=== PATIENT | male | born 1995 | race African-American/Black ===

== ENCOUNTER 2017-06-25 20:54 | Emergency (ER) | payer MEDICAID, OTHER ==
--- NOTE | 2017-07-18 15:15 | EKG ---
Test Reason : Blood Pressure : / mmHG Vent. Rate : 056 BPM Atrial Rate : 056 BPM P-R Int : 122 ms QRS Dur : 086 ms QT Int : 406 ms P-R-T Axes : 020 067 045 degrees QTc Int : 391 ms Sinus bradycardia No STEMI Otherwise normal ECG Confirmed by EMILE PALOMO ([id number]), international editorial producer KAYDEN JUNE ([id number] on 07/18/2017 3:15:31 PM Referred By: Confirmed By:EMILE PALOMO
== END 2017-06-25 22:14 | disposition left against medical advice (07) ==
LOC: ERS 20:54
DX: Z53.21 Procedure and treatment not carried out due to patient leaving prior to being seen by health care provider (principal)
CPT/HCPCS: 93005

== ENCOUNTER 2017-07-05 15:06 | Emergency (ER) | payer MEDICAID ==
--- NOTE | 2017-07-05 15:32 | RAD ---
PA VIEW OF THE CHEST: History: Chest pain. FINDINGS: Lungs are clear. Heart and mediastinum appear normal. Vascular markings are normal. IMPRESSION: Unremarkable one view chest. POS: [facility]
== END 2017-07-05 18:50 | disposition left against medical advice (07) ==
LOC: ERS 15:06
DX: Z53.21 Procedure and treatment not carried out due to patient leaving prior to being seen by health care provider (principal)
CPT/HCPCS: 71045; 93005

== ENCOUNTER 2017-08-10 13:00 | Emergency (ER) | payer MEDICAID, OTHER ==
[2017-08-10 13:47] LABS: Hemoglobin 15.7 g/dL (14.0-18.0); Mean Corpuscular HGB CONC 35.4 g/dL (32.0-36.0); Mean Corpuscular Hemoglobin 32.9 pg (25.0-35.0); Mean Corpuscular Volume 92.8 fl (77.0-87.0); RBC Distribution Width 11.9 % (11.5-14.5); Red Blood Cell (RBC) Count 4.79 mill/uL (4.00-5.20)
[2017-08-10 13:57] LABS: Bilirubin Negative (Negative); Blood, Urine Negative (Negative); Clarity CLEAR (Clear); Glucose, Urine (Dipstick) Negative (Negative); Leukocyte Negative (Negative); Nitrite Negative (Negative); Protein, Urine (Dipstick) Negative (Neg-Trace); Specific Gravity, Urine 1.005 (1.002-1.036); Urobilinogen 0.2 mg/dL (0.2-1.0)
--- NOTE | 2017-08-10 14:01 | RAD ---
UPRIGHT PORTABLE CHEST 1 VIEW: HISTORY: A 22-year-old male with a history of chest pain since 3:00 a.m. last night. COMPARISON: 07/05/17. FINDINGS: The heart size is normal. The lungs are clear. No pneumonia, edema, or pleural effusion. IMPRESSION: No acute intrathoracic disease. POS: [facility]
[2017-08-10 14:05] LABS: Band 1 % (5-11); Eosinophils 1 % (0-10); Lymphocytes 30 % (28-48); MDiff Complete? YES; Mean Platelet Volume 7.4 fL (7.4-10.4); Monocytes 4 % (0-4); Neutrophil 64 % (31-61); PLT Morphology Comment Appears Adequate; Platelet Count 144 thou/uL (130-400)
[2017-08-10 14:16] LABS: Albumin 4.2 g/dL (3.5-5.0); Alkaline Phosphatase 56 U/L (Less than 750); Anion Gap 12 mmol/L (10-20); Bilirubin, Total 0.5 mg/dL (0.2-1.2); Calcium 9.3 mg/dL (7.8-10.44); Carbon Dioxide 22 mmol/L (22-29); Chloride 107 mmol/L (98-107); Globulin 3.1 g/dL (2.4-3.5); Glucose 84 mg/dL (70-105); Potassium 3.8 mmol/L (3.5-5.1); Protein, Total 7.3 g/dL (6.0-8.3); Sodium 137 mmol/L (136-145)
[2017-08-10 14:18] LABS: CKMB 1.9 ng/mL (0-6.6); Troponin I Less than 0.010 ng/mL (< 0.028)
[2017-08-10 14:23] LABS: Medtox Reader # READER 1
[2017-08-10 14:24] LABS: Amphetamine Not Detected (NotDetected); Barbiturates Screen Not Detected (NotDetected); Benzodiazepine Screen Not Detected (NotDetected); Cocaine Metabolite Screen Not Detected (NotDetected); Medtox Control Line Valid? VALID (VALID); Methadone Not Detected (NotDetected); Methamphetamine Detected (NotDetected); Opiate Screen Not Detected (NotDetected); Oxycodone Screen Not Detected (NotDetected); Phencyclidine (PCP) Not Detected (NotDetected); THC/Cannabinoid Screen Detected (NotDetected); Tricyclic Screen Not Detected (NotDetected)
[2017-08-10 14:28] LABS: ALT (SGPT) 22 U/L (8-55); AST (SGOT) 28 U/L (5-34); BUN (Urea Nitrogen) 11 mg/dL (8.9-20.6); Calc. Creatinine Clearance 0 mL/min (70-130); Estimated GFR-MDRD 83
[2017-08-10 14:32] LABS: CK (CPK) 500 U/L (30-200)
== END 2017-08-10 15:24 | disposition home or self-care (01) ==
LOC: ERS 13:00
DX: N17.9 Acute kidney failure, unspecified (principal); R07.9 Chest pain, unspecified; R82.5 Elevated urine levels of drugs, medicaments and biological substances; F17.210 Nicotine dependence, cigarettes, uncomplicated
CPT/HCPCS: 36415; 71045; 80053; 80306; 81003; 82550; 82553; 84484; 85025; 85379; 93005; 99406

== ENCOUNTER 2017-08-11 11:19 | Emergency (ER) | payer MEDICAID, OTHER ==
--- NOTE | 2017-08-11 12:51 | RAD ---
CHEST 1 VIEW: HISTORY: Pain. COMPARISON: 08/10/17. FINDINGS: Normal cardiac silhouette. Pulmonary vessels and hilum are normal. Costophrenic angles are clear. No mass. No consolidation. No pneumothorax or osseous abnormalities. IMPRESSION: No acute cardiopulmonary process. POS: [facility]
== END 2017-08-11 12:08 | disposition home or self-care (01) ==
LOC: ERS 11:19
DX: R09.1 Pleurisy (principal); F15.10 Other stimulant abuse, uncomplicated; F17.210 Nicotine dependence, cigarettes, uncomplicated; Z71.6 Tobacco abuse counseling
CPT/HCPCS: 36415; 71045; 80053; 80306; 81003; 82550; 82553; 84484; 85025; 85379; 93005; 99406

== ENCOUNTER 2017-08-11 23:46 | Emergency (ER) | payer OTHER | END 2017-08-12 01:22 | disposition left against medical advice (07) | LOC: ERS 23:46 | DX: Z53.21 Procedure and treatment not carried out due to patient leaving prior to being seen by health care provider (principal) | CPT/HCPCS: 36415; 71045; 80053; 80306; 81003; 82550; 82553; 84484; 85025; 85379; 93005; 99406 ==

== ENCOUNTER 2017-09-18 05:26 | Emergency (ER) | payer OTHER ==
[2017-09-18 05:59] LABS: Bilirubin Negative (Negative); Blood, Urine Negative (Negative); Clarity CLEAR (Clear); Glucose, Urine (Dipstick) Negative (Negative); Leukocyte Negative (Negative); Nitrite Negative (Negative); Protein, Urine (Dipstick) Negative (Neg-Trace); Specific Gravity, Urine 1.003 (1.002-1.036); Urobilinogen 0.2 mg/dL (0.2-1.0); pH, Urine 6.5 (5.0-9.0)
[2017-09-18 06:09] LABS: #Basophils 0.1 thou/uL (0.0-0.2); #Monocytes 0.6 thou/uL (0.11-0.59); %Basophils 1.6 % (0.0-1.0); %Eosinophils 0.7 % (0.0-10.0); %Lymphocytes 44.8 % (28.0-48.0); %Monocytes 9.1 % (0.0-4.0); %Neutrophils 43.8 % (31.0-61.0); Hemoglobin 14.8 g/dL (14.0-18.0); Mean Corpuscular HGB CONC 34.2 g/dL (32.0-36.0); Mean Corpuscular Hemoglobin 31.6 pg (25.0-35.0); Mean Corpuscular Volume 92.4 fl (77.0-87.0); Mean Platelet Volume 6.8 fL (7.4-10.4); Platelet Count 180 thou/uL (130-400); RBC Distribution Width 11.9 % (11.5-14.5); White Blood Cell (WBC) Count 6.8 thou/uL (4.8-10.8)
[2017-09-18 06:17] LABS: Amphetamine Detected (NotDetected); Benzodiazepine Screen Not Detected (NotDetected); Cocaine Metabolite Screen Not Detected (NotDetected); Medtox Reader # READER 1; Methamphetamine Not Detected (NotDetected); Opiate Screen Not Detected (NotDetected); Phencyclidine (PCP) Not Detected (NotDetected); THC/Cannabinoid Screen Not Detected (NotDetected); Tricyclic Screen Not Detected (NotDetected)
[2017-09-18 06:18] LABS: Barbiturates Screen Not Detected (NotDetected); Medtox Control Line Valid? VALID (VALID); Methadone Not Detected (NotDetected); Oxycodone Screen Not Detected (NotDetected)
[2017-09-18 06:24] LABS: ALT (SGPT) 32 U/L (8-55); AST (SGOT) 51 U/L (5-34); Albumin 4.6 g/dL (3.5-5.0); Alkaline Phosphatase 53 U/L (Less than 750); Anion Gap 16 mmol/L (10-20); BUN (Urea Nitrogen) 11 mg/dL (8.9-20.6); Bilirubin, Total 0.6 mg/dL (0.2-1.2); Calc. Creatinine Clearance 0 mL/min (70-130); Calcium 9.6 mg/dL (7.8-10.44); Carbon Dioxide 20 mmol/L (22-29); Chloride 105 mmol/L (98-107); Estimated GFR-MDRD 84; Globulin 3.5 g/dL (2.4-3.5); Glucose 89 mg/dL (70-105); Potassium 4.4 mmol/L (3.5-5.1); Protein, Total 8.1 g/dL (6.0-8.3); Sodium 137 mmol/L (136-145)
== END 2017-09-18 07:53 | disposition home or self-care (01) ==
LOC: ERS 05:26
DX: R07.9 Chest pain, unspecified (principal); R51 Headache; F17.210 Nicotine dependence, cigarettes, uncomplicated
CPT/HCPCS: 36416; 80053; 80306; 81003; 83690; 85025; 93005

== ENCOUNTER 2017-09-24 22:04 | Emergency (ER) | payer OTHER ==
[2017-09-24] MEDS ORDERED: diphenhydrAMINE 50 MG/ML VIAL ONE (23:27)
[2017-09-24] MEDS ORDERED: Acetaminophen 500 MG TAB ONE (23:27)
[2017-09-24] MEDS ORDERED: Metoclopramide HCl 10 MG/2 ML VIAL ONE (23:27)
[2017-09-24 23:29] LABS: Hemoglobin 14.8 g/dL (14.0-18.0); Mean Corpuscular HGB CONC 34.2 g/dL (32.0-36.0); Mean Corpuscular Hemoglobin 31.5 pg (25.0-35.0); Mean Corpuscular Volume 92.1 fL (78.0-98.0); Mean Platelet Volume 5.9 fL (7.4-10.4); Platelet Count 242 thou/uL (130-400); RBC Distribution Width 11.9 % (11.5-14.5); Red Blood Cell (RBC) Count 4.71 mill/uL (4.00-5.20); White Blood Cell (WBC) Count 6.4 thou/uL (4.8-10.8)
[2017-09-24 23:47] LABS: Acetaminophen Less than 6.0 mcg/mL (10.0-30.0); Alcohol Less than 10 mg/dL (Less than 10); Salicylate Less than 8.0 mg/dL (15.0-30.0)
[2017-09-24 23:49] LABS: ALT (SGPT) 19 U/L (8-55); AST (SGOT) 22 U/L (5-34); Albumin 4.4 g/dL (3.5-5.0); Alkaline Phosphatase 53 U/L (Less than 750); Anion Gap 12 mmol/L (10-20); BUN (Urea Nitrogen) 15 mg/dL (8.9-20.6); Bilirubin, Total 0.5 mg/dL (0.2-1.2); Calc. Creatinine Clearance 0 mL/min (70-130); Calcium 9.6 mg/dL (7.8-10.44); Carbon Dioxide 25 mmol/L (22-29); Chloride 105 mmol/L (98-107); Estimated GFR-MDRD 81; Globulin 3.1 g/dL (2.4-3.5); Glucose 79 mg/dL (70-105); Lipase 18 U/L (8-78); Magnesium 2.2 mg/dL (1.7-2.2); Potassium 3.8 mmol/L (3.5-5.1); Protein, Total 7.5 g/dL (6.0-8.3); Sodium 138 mmol/L (136-145)
[2017-09-24 23:50] LABS: Lymphocytes 53 % (28-48); MDiff Complete? YES; Monocytes 6 % (0-4); Neutrophil 40 % (31-61)
[2017-09-24 23:57] LABS: Bilirubin Negative (Negative); Blood, Urine Negative (Negative); Clarity CLEAR (Clear); Glucose, Urine (Dipstick) Negative (Negative); Leukocyte Negative (Negative); Nitrite Negative (Negative); Protein, Urine (Dipstick) Negative (Neg-Trace); Specific Gravity, Urine 1.007 (1.002-1.036); Urobilinogen 0.2 mg/dL (0.2-1.0); pH, Urine 6.5 (5.0-9.0)
[2017-09-25 00:08] LABS: Cocaine Metabolite Screen Not Detected (NotDetected); Medtox Reader # READER 4; Methamphetamine Detected (NotDetected); Opiate Screen Not Detected (NotDetected); Phencyclidine (PCP) Not Detected (NotDetected); THC/Cannabinoid Screen Detected (NotDetected)
[2017-09-25 00:09] LABS: Amphetamine Detected (NotDetected); Barbiturates Screen Not Detected (NotDetected); Benzodiazepine Screen Not Detected (NotDetected); Medtox Control Line Valid? VALID (VALID); Methadone Not Detected (NotDetected); Oxycodone Screen Not Detected (NotDetected); Tricyclic Screen Not Detected (NotDetected)
--- NOTE | 2017-09-25 11:00 | CT ---
PRELIMINARY REPORT/[facility]/EMERGENTY AFTER-HOURS PROCEDURE CT Head Without Intravenous Contrast CLINICAL HISTORY: 22 years old, male; Pain; Headache; Headache not specified; Patient HX: Patient complains of headache TECHNIQUE: Axial computed tomography images of the head/brain without intravenous contrast. COMPARISON: No relevant prior studies available. FINDINGS: Brain: No hemorrhage. No significant white matter disease. No edema. Ventricles: No ventriculomegaly. Bones/joints: No acute fracture. Soft tissues: No acute findings. Sinuses: No significant air fluid levels. Mastoid air cells: No significant fluid. IMPRESSION: No acute findings. Thank you for allowing us to participate in the care of your patient. Dictated and Authenticated by: Eloy Dean MD 09/25/2017 1:39 AM Central Time ([place] & [place]) FINAL REPORT: BRAIN CT WITHOUT IV CONTRAST: Emergency after hour exam at 1214 a.m., 09-25-17. FINDINGS: No mass or bleed or other significant acute process. Code QA/agree with [facility]. POS: [facility]
== END 2017-09-25 02:04 | disposition home or self-care (01) ==
LOC: ERS 22:04
DX: R51 Headache (principal); F17.210 Nicotine dependence, cigarettes, uncomplicated; Z79.899 Other long term (current) drug therapy
CPT/HCPCS: 36415; 70450; 80053; 80306; 80307; 81003; 83690; 83735; 85025; 85379; 96365; 96366; 96375; J1200; J2765

== ENCOUNTER 2017-09-26 01:08 | Emergency (ER) | payer OTHER ==
[2017-09-26] MEDS ORDERED: Ketorolac Tromethamine 30 MG/ML VIAL ONE (01:35)
== END 2017-09-26 03:10 | disposition home or self-care (01) ==
LOC: ERS 01:08
DX: R51 Headache (principal); F17.210 Nicotine dependence, cigarettes, uncomplicated
CPT/HCPCS: 96361; 96374; J1885

== ENCOUNTER 2018-03-07 18:21 | Emergency (ER) | payer OTHER ==
[2018-03-07 19:34] LABS: Hemoglobin 15.4 g/dL (14.0-18.0); Mean Corpuscular HGB CONC 34.8 g/dL (32.0-36.0); Mean Corpuscular Hemoglobin 32.4 pg (25.0-35.0); Mean Corpuscular Volume 93.1 fL (78.0-98.0); Mean Platelet Volume 6.6 fL (7.4-10.4); Platelet Count 259 thou/uL (130-400); RBC Distribution Width 11.8 % (11.5-14.5); Red Blood Cell (RBC) Count 4.73 mill/uL (4.00-5.20)
[2018-03-07 20:02] LABS: Eosinophils 1 % (0-10); Lymphocytes 63 % (28-48); MDiff Complete? YES; Monocytes 4 % (0-4); Neutrophil 32 % (31-61); PLT Morphology Comment Appears Adequate
--- NOTE | 2018-03-07 20:55 | RAD ---
RADIOGRAPH CHEST 2 VIEWS: 03/07/18 HISTORY: 22-year-old male with mid sternal chest pain and dyspnea. FINDINGS: There is no air space density, pulmonary edema, pleural effusion, pneumothorax, or cardiomegaly. IMPRESSION: No acute cardiopulmonary findings. jn [] POS: [facility]
--- NOTE | 2018-03-09 12:24 | EKG ---
Test Reason : Blood Pressure : / mmHG Vent. Rate : 058 BPM Atrial Rate : 058 BPM P-R Int : 148 ms QRS Dur : 084 ms QT Int : 392 ms P-R-T Axes : 036 060 040 degrees QTc Int : 384 ms Sinus bradycardia with sinus arrhythmia Otherwise normal ECG Confirmed by ANA IBARRA DO ([id number]), city editor SUNDEEP DEL CASTILLO ([id number]) on 03/09/2018 12:23:55 PM Referred By: Confirmed By:ANA IBARRA DO
== END 2018-03-07 20:13 | disposition home or self-care (01) ==
LOC: ERS 18:21
DX: M94.0 Chondrocostal junction syndrome [Tietze] (principal); F17.210 Nicotine dependence, cigarettes, uncomplicated
CPT/HCPCS: 36415; 71046; 85025; 93005

== ENCOUNTER 2018-05-05 23:39 | Emergency (ER) | payer OTHER ==
[2018-05-06 00:35] LABS: #Basophils 0.1 thou/uL (0.0-0.2); #Eosinphils 0.1 thou/uL (0.0-0.7); #Lymphocytes 3.2 thou/uL (1.20-3.40); #Monocytes 0.3 thou/uL (0.11-0.59); #Neutrophils 2.8 thou/uL (1.40-6.50); %Basophils 1.7 % (0.0-1.0); %Lymphocytes 49.4 % (21.0-51.0); %Monocytes 4.8 % (0.0-10.0); %Neutrophils 43.1 % (42.0-75.0); Hemoglobin 16.2 g/dL (14.0-18.0); Mean Corpuscular HGB CONC 33.5 g/dL (32.0-36.0); Mean Corpuscular Hemoglobin 31.2 pg (27.0-31.0); Mean Corpuscular Volume 93.1 fL (78.0-98.0); Mean Platelet Volume 6.5 fL (7.4-10.4); Platelet Count 250 thou/uL (130-400); RBC Distribution Width 11.5 % (11.5-14.5); Red Blood Cell (RBC) Count 5.19 mill/uL (4.70-6.10); White Blood Cell (WBC) Count 6.5 thou/uL (4.8-10.8)
[2018-05-06 00:54] LABS: ALT (SGPT) 17 U/L (8-55); AST (SGOT) 24 U/L (5-34); Albumin 4.4 g/dL (3.5-5.0); Alkaline Phosphatase 54 U/L (40-150); Anion Gap 14 mmol/L (10-20); BUN (Urea Nitrogen) 8 mg/dL (8.9-20.6); Bilirubin, Total 0.3 mg/dL (0.2-1.2); Calc. Creatinine Clearance 0 mL/min (70-130); Calcium 9.5 mg/dL (7.8-10.44); Carbon Dioxide 24 mmol/L (22-29); Chloride 105 mmol/L (98-107); Estimated GFR-MDRD 88; Globulin 2.7 g/dL (2.4-3.5); Glucose 80 mg/dL (70-105); Lipase 18 U/L (8-78); Potassium 3.6 mmol/L (3.5-5.1); Protein, Total 7.1 g/dL (6.0-8.3); Sodium 139 mmol/L (136-145)
--- NOTE | 2018-05-06 08:12 | RAD ---
PORTABLE UPRIGHT FRONTAL CHEST RADIOGRAPH: Date: 05/06/18 COMPARISON: 08/11/17. HISTORY: Abdominal swelling and bloating, difficulty breathing. FINDINGS: Lungs are clear. Heart and mediastinal contours unremarkable. IMPRESSION: No acute findings. POS: [facility]
== END 2018-05-06 02:24 | disposition home or self-care (01) ==
LOC: ERS 23:39
DX: R06.02 Shortness of breath (principal); F17.210 Nicotine dependence, cigarettes, uncomplicated; Z79.899 Other long term (current) drug therapy
CPT/HCPCS: 71045; 80053; 82550; 83690; 85025; 93005

== ENCOUNTER 2018-05-07 03:44 | Emergency (ER) | payer OTHER ==
[2018-05-07 04:21] LABS: #Basophils 0.1 thou/uL (0.0-0.2); #Lymphocytes 2.4 thou/uL (1.20-3.40); #Monocytes 0.5 thou/uL (0.11-0.59); #Neutrophils 2.6 thou/uL (1.40-6.50); %Basophils 1.6 % (0.0-1.0); %Eosinophils 0.5 % (0.0-10.0); %Lymphocytes 43.4 % (21.0-51.0); %Monocytes 8.1 % (0.0-10.0); %Neutrophils 46.5 % (42.0-75.0); Hemoglobin 16.8 g/dL (14.0-18.0); Mean Corpuscular HGB CONC 33.5 g/dL (32.0-36.0); Mean Corpuscular Hemoglobin 31.7 pg (27.0-31.0); Mean Corpuscular Volume 94.7 fL (78.0-98.0); Mean Platelet Volume 6.6 fL (7.4-10.4); Platelet Count 231 thou/uL (130-400); RBC Distribution Width 11.6 % (11.5-14.5); Red Blood Cell (RBC) Count 5.29 mill/uL (4.70-6.10); White Blood Cell (WBC) Count 5.6 thou/uL (4.8-10.8)
[2018-05-07 04:40] LABS: ALT (SGPT) 20 U/L (8-55); AST (SGOT) 26 U/L (5-34); Acetaminophen Less than 6.0 mcg/mL (10.0-30.0); Albumin 4.4 g/dL (3.5-5.0); Alcohol Less than 10 mg/dL (Less than 10); Alkaline Phosphatase 57 U/L (40-150); Anion Gap 16 mmol/L (10-20); BUN (Urea Nitrogen) 8 mg/dL (8.9-20.6); Bilirubin, Total 0.5 mg/dL (0.2-1.2); Calc. Creatinine Clearance 0 mL/min (70-130); Calcium 10.6 mg/dL (7.8-10.44); Carbon Dioxide 22 mmol/L (22-29); Chloride 104 mmol/L (98-107); Estimated GFR-MDRD 84; Globulin 3.1 g/dL (2.4-3.5); Glucose 92 mg/dL (70-105); Potassium 4.1 mmol/L (3.5-5.1); Protein, Total 7.5 g/dL (6.0-8.3); Salicylate Less than 8.0 mg/dL (15.0-30.0); Sodium 138 mmol/L (136-145)
[2018-05-07 05:17] LABS: Cocaine Metabolite Screen Not Detected (NotDetected); Medtox Reader # READER 4; Methamphetamine Detected (NotDetected); Opiate Screen Not Detected (NotDetected); Phencyclidine (PCP) Not Detected (NotDetected); THC/Cannabinoid Screen Not Detected (NotDetected)
[2018-05-07 05:18] LABS: Amphetamine Detected (NotDetected); Barbiturates Screen Not Detected (NotDetected); Benzodiazepine Screen Not Detected (NotDetected); Medtox Control Line Valid? VALID (VALID); Methadone Not Detected (NotDetected); Oxycodone Screen Not Detected (NotDetected); Tricyclic Screen Not Detected (NotDetected)
--- NOTE | 2018-05-07 07:57 | RAD ---
CHEST ONE VIEW: Indication: Chest pain. Comparison: 05-06-18 FINDINGS: The lungs are clear. Cardiomediastinal silhouette is within normal limits. No acute osseous abnormali ty is evident. IMPRESSION: No acute cardiopulmonary abnormality. POS: [facility]
--- NOTE | 2018-05-07 08:00 | CT ---
CT BRAIN WITHOUT CONTRAST: Indication: Altered mental status with weakness and numbness in the left arm. Comparison: 09-25-17 FINDINGS: No acute infarct, hemorrhage, or hydrocephalus is present. The septum pellucidum and third ventricle are midline. Mastoid air cells are clear. Mild mucosal thickening within the ethmoid air cells. IMPRESSION: No acute intracranial abnormality. POS: [facility]
== END 2018-05-07 05:45 | disposition home or self-care (01) ==
LOC: ERS 03:44
DX: F12.10 Cannabis abuse, uncomplicated (principal); R20.2 Paresthesia of skin; F17.210 Nicotine dependence, cigarettes, uncomplicated
CPT/HCPCS: 36415; 70450; 71045; 80053; 80306; 80307; 84484; 85025; 93005

== ENCOUNTER 2018-05-10 01:15 | Emergency (ER) | payer OTHER ==
[2018-05-10 03:27] LABS: ALT (SGPT) 18 U/L (8-55); AST (SGOT) 24 U/L (5-34); Albumin 4.4 g/dL (3.5-5.0); Alkaline Phosphatase 54 U/L (40-150); Anion Gap 15 mmol/L (10-20); BUN (Urea Nitrogen) 8 mg/dL (8.9-20.6); Bilirubin, Total 0.5 mg/dL (0.2-1.2); Calc. Creatinine Clearance 0 mL/min (70-130); Calcium 9.8 mg/dL (7.8-10.44); Carbon Dioxide 24 mmol/L (22-29); Chloride 106 mmol/L (98-107); Estimated GFR-MDRD Greater than 90; Globulin 2.9 g/dL (2.4-3.5); Glucose 96 mg/dL (70-105); Potassium 3.8 mmol/L (3.5-5.1); Protein, Total 7.3 g/dL (6.0-8.3); Sodium 141 mmol/L (136-145)
[2018-05-10] MEDS ORDERED: Aspirin Chewable 81 MG TAB ONE (03:35)
== END 2018-05-10 03:38 | disposition home or self-care (01) ==
LOC: ERS 01:15
DX: F19.10 Other psychoactive substance abuse, uncomplicated (principal); R07.89 Other chest pain; F17.210 Nicotine dependence, cigarettes, uncomplicated
CPT/HCPCS: 36415; 80053; 84484; 93005

== ENCOUNTER 2018-06-21 04:24 | Emergency (ER) | payer OTHER | END 2018-06-21 04:40 | disposition home or self-care (01) | LOC: ERS 04:24 | DX: F12.10 Cannabis abuse, uncomplicated (principal); F17.210 Nicotine dependence, cigarettes, uncomplicated | CPT/HCPCS: 99283 ==

== ENCOUNTER 2018-10-08 11:25 | Emergency (ER) | payer OTHER ==
[2018-10-08] MEDS ORDERED: Ondansetron ODT 4 MG TAB ONE (11:54)
== END 2018-10-08 12:11 | disposition home or self-care (01) ==
LOC: ERS 11:25
DX: R11.2 Nausea with vomiting, unspecified (principal); F17.210 Nicotine dependence, cigarettes, uncomplicated
CPT/HCPCS: 99283; Q0162

== ENCOUNTER 2018-10-11 09:07 | Emergency (ER) | payer OTHER ==
[2018-10-11] MEDS ORDERED: Lidocaine 1% (PF) 30 ML VIAL ONE (09:23)
[2018-10-11] MEDS ORDERED: Adacel (T-DAP) 0.5 ML SYRINGE ONE (09:55)
--- NOTE | 2018-10-11 10:17 | RAD ---
RIGHT INDEX FINGER 3 VIEWS: Date: 10/11/18 HISTORY: Injury, laceration right index finger, pain. FINDINGS/IMPRESSION: There is soft tissue swelling in the distal aspect of the right index finger. No radiopaque foreign b j luis is seen. There is a questionable lucency in the tuft of the distal phalanx on the lateral view, w hich could represent a nondisplaced fracture. POS: [facility]
[2018-10-11] MEDS ORDERED: Bacitracin 1 PK ONE (11:02)
== END 2018-10-11 11:30 | disposition home or self-care (01) ==
LOC: ERS 09:07
DX: S61.210A Laceration without foreign body of right index finger without damage to nail, initial encounter (principal); F17.210 Nicotine dependence, cigarettes, uncomplicated; W26.8XXA Contact with other sharp object(s), not elsewhere classified, initial encounter; Z23 Encounter for immunization
CPT/HCPCS: 12002; 90471; 90715; J2001

== ENCOUNTER 2018-10-22 19:15 | Emergency (ER) | payer OTHER ==
[2018-10-22 20:06] LABS: Bilirubin Negative (Negative); Blood, Urine Negative (Negative); Clarity Clear (Clear); Glucose, Urine (Dipstick) Normal (Negative); Leukocyte Negative Leu/uL (Negative); Nitrite Negative (Negative); Protein, Urine (Dipstick) Negative (Neg-Trace); Urobilinogen Normal mg/dL (Less than 2)
[2018-10-22 20:14] LABS: #Basophils 0.1 thou/uL (0.0-0.2); #Eosinphils 0.1 thou/uL (0.0-0.7); #Lymphocytes 3.1 thou/uL (1.20-3.40); #Monocytes 0.7 thou/uL (0.11-0.59); #Neutrophils 3.2 thou/uL (1.40-6.50); %Eosinophils 1.5 % (0.0-10.0); %Lymphocytes 42.7 % (21.0-51.0); %Neutrophils 44.9 % (42.0-75.0); Hemoglobin 14.2 g/dL (14.0-18.0); Mean Corpuscular HGB CONC 32.9 g/dL (32.0-36.0); Mean Corpuscular Hemoglobin 31.4 pg (27.0-31.0); Mean Corpuscular Volume 95.4 fL (78.0-98.0); Mean Platelet Volume 6.1 fL (7.4-10.4); Platelet Count 231 thou/uL (130-400); RBC Distribution Width 11.9 % (11.5-14.5); Red Blood Cell (RBC) Count 4.53 mill/uL (4.70-6.10); White Blood Cell (WBC) Count 7.2 thou/uL (4.8-10.8)
[2018-10-22 20:35] LABS: ALT (SGPT) 16 U/L (8-55); AST (SGOT) 19 U/L (5-34); Albumin 4.2 g/dL (3.5-5.0); Alkaline Phosphatase 47 U/L (40-150); Anion Gap 13 mmol/L (10-20); BUN (Urea Nitrogen) 17 mg/dL (8.9-20.6); Bilirubin, Total 0.3 mg/dL (0.2-1.2); Calc. Creatinine Clearance 0 mL/min (70-130); Calcium 9.3 mg/dL (7.8-10.44); Carbon Dioxide 25 mmol/L (22-29); Chloride 103 mmol/L (98-107); Estimated GFR-MDRD 90; Globulin 3.1 g/dL (2.4-3.5); Glucose 98 mg/dL (70-105); Lipase 32 U/L (8-78); Potassium 4.1 mmol/L (3.5-5.1); Protein, Total 7.3 g/dL (6.0-8.3); Sodium 137 mmol/L (136-145)
== END 2018-10-22 21:04 | disposition home or self-care (01) ==
LOC: ERS 19:15
DX: R11.2 Nausea with vomiting, unspecified (principal); F17.210 Nicotine dependence, cigarettes, uncomplicated
CPT/HCPCS: 36415; 80053; 81003; 83690; 85025; 99284

== ENCOUNTER 2020-07-06 01:36 | Emergency (ER) | payer OTHER, SELFPAY | END 2020-07-06 01:50 | LOC: ERS 01:36 | DX: F16.10 Hallucinogen abuse, uncomplicated (principal); F17.210 Nicotine dependence, cigarettes, uncomplicated | CPT/HCPCS: 99284 ==

== ENCOUNTER 2020-11-16 | Emergency (ER) | payer SELFPAY | END 2020-11-16 21:13 | disposition home or self-care (01) ==

== ENCOUNTER 2020-11-19 11:10 | Emergency (ER) | payer SELFPAY | END 2020-11-19 13:26 | disposition home or self-care (01) | LOC: ERS 11:10 | DX: Z02.79 Encounter for issue of other medical certificate (principal); F17.210 Nicotine dependence, cigarettes, uncomplicated | CPT/HCPCS: 99281 ==

== ENCOUNTER 2020-11-30 | Emergency (ER) | payer SELFPAY | END 2020-11-30 18:32 | disposition home or self-care (01) ==

== ENCOUNTER 2020-12-08 19:06 | Emergency (ER) | payer SELFPAY | END 2020-12-08 20:42 | disposition home or self-care (01) | LOC: ERS 19:06 | DX: Z02.79 Encounter for issue of other medical certificate (principal); F17.210 Nicotine dependence, cigarettes, uncomplicated | CPT/HCPCS: 99281 ==

== ENCOUNTER 2020-12-10 08:36 | Emergency (ER) | payer SELFPAY | END 2020-12-10 10:10 | disposition home or self-care (01) | LOC: ERS 08:36 | DX: M62.838 Other muscle spasm (principal); F17.210 Nicotine dependence, cigarettes, uncomplicated; X50.0XXA Overexertion from strenuous movement or load, initial encounter; Y99.0 Civilian activity done for income or pay | CPT/HCPCS: 99283 ==

== ENCOUNTER 2020-12-14 14:09 | Emergency (ER) | payer SELFPAY ==
[2020-12-14 20:17] LABS: SARS-CoV-2 PCR by NAA Not Detected (NotDetected)
== END 2020-12-14 14:42 | disposition home or self-care (01) ==
LOC: ERS 14:09
DX: R51.9 Headache, unspecified (principal); Z20.822 Contact with and (suspected) exposure to COVID-19; F17.210 Nicotine dependence, cigarettes, uncomplicated
CPT/HCPCS: 99284; U0003; U0005

== ENCOUNTER 2022-10-30 16:53 | Emergency (ER) | payer SELFPAY ==
[2022-10-30] MEDS ORDERED: Ketorolac Tromethamine 30 MG/ML VIAL ONE (18:18)
== END 2022-10-30 18:42 | disposition home or self-care (01) ==
LOC: ERS 16:53
DX: M70.842 Other soft tissue disorders related to use, overuse and pressure, left hand (principal); M70.841 Other soft tissue disorders related to use, overuse and pressure, right hand; M25.532 Pain in left wrist; M25.531 Pain in right wrist; F17.210 Nicotine dependence, cigarettes, uncomplicated
CPT/HCPCS: 96372; J1885